=== PATIENT | female | born 1990 | race Hispanic/Latino ===

== ENCOUNTER 2022-02-01 17:06 | Inpatient (IN) | payer OTHER ==
[~2022-02-01] VITALS: Ht 154.9 cm; Wt 57.2 kg
[2022-02-01] MEDS ORDERED: OCTREOTIDE ACETATE 500 MCG in SODIUM CHLORIDE 0.9% 250ML 250 ML IV STA (17:27)
[2022-02-01 17:38] LABS: BASOPHILS % 0.5 % (0.0-1.0); EOSINOPHILS # (AUTO) 0.1 (0.0-0.4); EOSINOPHILS % 1.8 % (0.0-6.0); HEMOGLOBIN 7.3 g/dL (12.0-16.0); LYMPHOCYTES # (AUTO) 0.8 (1.0-3.2); LYMPHOCYTES % 21.8 % (18.0-39.1); MEAN CORPUSCULAR HEMOGLOBIN 31.6 pg (28-32); MEAN CORPUSCULAR HGB CONC 31.7 g/dL (31-35); MEAN CORPUSCULAR VOLUME 99.6 fL (81-99); MONOCYTES # (AUTO) 0.5 (0.2-0.8); MONOCYTES % 13.1 % (4.4-11.3); NEUTROPHILS # (AUTO) 2.4 (2.1-6.9); NEUTROPHILS % 62.5 % (38.7-80.0); PLATELET COUNT 88 x10e3/uL (140-360); RED BLOOD COUNT 2.31 x10e6/uL (3.6-5.1); RED CELL DISTRIBUTION WIDTH 21.6 % (11.7-14.4)
[2022-02-01 17:45] LABS: INR 1.62
[2022-02-01 17:48] LABS: PROTHROMBIN TIME 20.6 seconds (11.9-14.5)
[2022-02-01 17:54] LABS: ALBUMIN 2.8 g/dL (3.5-5.0); ALBUMIN/GLOBULIN RATIO 0.5 (0.8-2.0); ANION GAP 13.1 mmol/L (8-16); CALCIUM 9.8 mg/dL (8.4-10.2); CREATININE, SERUM 0.8 mg/dL (0.57-1.11); POTASSIUM 4.1 mmol/L (3.5-5.1)
[2022-02-01 18:38] LABS: LIPASE 5 U/L (8-78)
[2022-02-01] MEDS ORDERED: Morphine 4mg INJECTION 4 MG/ML INJ IV PRN (18:45)
[2022-02-01] MEDS ORDERED: ONDANSETRON HCL INJ 2MG/ML 2ML 2 MG/ML VIAL IV PRN (18:45)
[2022-02-01 18:57] LABS: CLARITY,URINE CLOUDY (CLEAR); COLOR,URINE YELLOW (YELLOW)
[2022-02-01 18:58] LABS: KETONES,URINE NEGATIVE (NEGATIVE); LEUKOCYTE ESTERASE ,URINE NEGATIVE (NEGATIVE); NITRITE,URINE NEGATIVE (NEGATIVE); PROTEIN,URINE DIPSTICK 1+ (NEGATIVE)
[2022-02-01 19:13] LABS: BACTERIA,URINE MANY /HPF; EPITHELIAL CELLS,URINE MODERATE /LPF
[2022-02-01] MEDS ORDERED: SODIUM CHLORIDE 0.9% 250ML 250 ML IV ONE (19:15)
[2022-02-01 19:21] LABS: CREATINE KINASE MB 0.9 ng/mL (0-5.0)
[2022-02-01 21:22] LABS: AMPHETAMINES SCREEN,URINE POSITIVE (NEGATIVE); BENZODIAZEPINES SCREEN,URINE POSITIVE (NEGATIVE); PHENCYCLIDINE SCREEN,URINE NEGATIVE (NEGATIVE)
[2022-02-01 22:44] LABS: BILIRUBIN,DIRECT 8.4 mg/dL (0.0-0.5)
[2022-02-01] MEDS: SODIUM CHLORIDE 0.9% 1000ML 1,000 ML IV SCH (23:00)
[2022-02-01] MEDS: OCTREOTIDE ACETATE 500 MCG in SODIUM CHLORIDE 0.9% 250ML 250 ML IV SCH (23:03)
[2022-02-02] VITALS (8 sets, daily range): BP systolic 104–147; BP diastolic 69–95
[2022-02-02] MEDS: SODIUM CHLORIDE 0.9% 1000ML 1,000 ML IV SCH (02:45)
[2022-02-02] MEDS: OCTREOTIDE ACETATE 500 MCG in SODIUM CHLORIDE 0.9% 250ML 250 ML IV SCH ×3 (03:45→19:00)
[2022-02-02] MEDS ORDERED: METOPROLOL TARTRATE 25 MG TAB PO SCH (09:00)
[2022-02-02] MEDS ORDERED: CARVEDILOL 3.125 MG TAB PO SCH (09:00)
[2022-02-02] MEDS ORDERED: LEVALBUTEROL HCL SOLN NEBU 0.63 MG/3 ML NEB INH PRN (09:30)
[2022-02-02] MEDS ORDERED: LEVALBUTEROL HCL SOLN NEBU 0.63 MG/3 ML NEB ONE (09:33)
[2022-02-02] MEDS ORDERED: IPRATROPIUM BROMIDE 0.02% 2.5 ML NEB ONE (09:33)
[2022-02-02 11:33] LABS: ALBUMIN 2.3 g/dL (3.5-5.0); ALBUMIN/GLOBULIN RATIO 0.5 (0.8-2.0); ANION GAP 10.4 mmol/L (8-16); CALCIUM 8.6 mg/dL (8.4-10.2); CREATININE, SERUM 0.81 mg/dL (0.57-1.11); POTASSIUM 4.4 mmol/L (3.5-5.1)
[2022-02-02 11:40] LABS: CREATINE KINASE MB 1.5 ng/mL (0-5.0)
[2022-02-02 12:07] LABS: BASOPHILS % 0.4 % (0.0-1.0); EOSINOPHILS # (AUTO) 0.1 (0.0-0.4); EOSINOPHILS % 1.6 % (0.0-6.0); HEMATOCRIT 24.4 % (34.2-44.1); HEMOGLOBIN 7.4 g/dL (12.0-16.0); LYMPHOCYTES # (AUTO) 0.7 (1.0-3.2); LYMPHOCYTES % 16.2 % (18.0-39.1); MEAN CORPUSCULAR HEMOGLOBIN 31.8 pg (28-32); MEAN CORPUSCULAR HGB CONC 30.3 g/dL (31-35); MEAN CORPUSCULAR VOLUME 104.7 fL (81-99); MONOCYTES # (AUTO) 0.7 (0.2-0.8); MONOCYTES % 14.8 % (4.4-11.3); NEUTROPHILS % 66.8 % (38.7-80.0); PLATELET COUNT 87 x10e3/uL (140-360); RED BLOOD COUNT 2.33 x10e6/uL (3.6-5.1); RED CELL DISTRIBUTION WIDTH 21.4 % (11.7-14.4)
[2022-02-02] MEDS: DEXTROSE 5%/0.45% SOD CHL 1,000 ML IV SCH (15:26)
[2022-02-02] MEDS: LACTULOSE SYRUP 20 GM/30 ML UDC PO SCH ×3 (15:28→21:28)
[2022-02-02] MEDS: PROPRANOLOL HCL 40 MG TAB PO SCH (17:55)
[2022-02-02] MEDS: RIFAXIMIN 550 MG TABLET PO SCH (17:55)
[2022-02-02] MEDS ORDERED: MAGNESIUM SULFATE 2GM/50ML 50 ML IV ONE ×2 (18:30→20:00)
[2022-02-02 20:00] LABS: CREATINE KINASE MB 1.7 ng/mL (0-5.0)
[2022-02-03] VITALS (10 sets, daily range): BP systolic 93–133; BP diastolic 57–81
[2022-02-03] MEDS ORDERED: SODIUM CHLORIDE 0.9% 250ML 250 ML ONE ×3 (00:04→23:44)
[2022-02-03 01:27] LABS: IRON 72 ug/dL (50-170); TRANSFERRIN < 70 mg/dL (180-382)
[2022-02-03] MEDS: DEXTROSE 5%/0.45% SOD CHL 1,000 ML IV SCH ×2 (04:35→17:45)
[2022-02-03 05:44] LABS: TOTAL IRON BINDING CAPACITY 55 ug/dL (261-478)
[2022-02-03 05:46] LABS: % IRON SATURATION 136 % (15-50)
[2022-02-03] MEDS: PROPRANOLOL HCL 40 MG TAB PO SCH ×2 (09:59→16:57)
[2022-02-03] MEDS: RIFAXIMIN 550 MG TABLET PO SCH ×2 (10:00→16:57)
[2022-02-03] MEDS: LACTULOSE SYRUP 20 GM/30 ML UDC PO SCH ×4 (10:00→21:00)
[2022-02-03] MEDS ORDERED: DEXTROSE 50% SYRINGE 50 ML IV PRN (10:30)
[2022-02-03 11:07] LABS: ALBUMIN/GLOBULIN RATIO 0.5 (0.8-2.0); CALCIUM 8.1 mg/dL (8.4-10.2); CREATININE, SERUM 0.94 mg/dL (0.57-1.11)
[2022-02-03] MEDS: INSULIN LISPRO 100 UNIT/1 ML 3ML VIAL SQ SCH ×3 (12:58→21:00)
[2022-02-03] MEDS: MULTIVITAMINS- 12 INJECTION 10 ML, FOLIC ACID MDV 1 MG, THIAMINE HCL INJ 100 MG in SODI... IV SCH (13:09)
[2022-02-03 14:14] LABS: BASOPHILS % 0.4 % (0.0-1.0); EOSINOPHILS # (AUTO) 0.1 (0.0-0.4); EOSINOPHILS % 2.6 % (0.0-6.0); HEMOGLOBIN 6.4 g/dL (12.0-16.0); LYMPHOCYTES # (AUTO) 0.9 (1.0-3.2); MEAN CORPUSCULAR HEMOGLOBIN 31.8 pg (28-32); MEAN CORPUSCULAR HGB CONC 31.4 g/dL (31-35); MEAN CORPUSCULAR VOLUME 101.5 fL (81-99); MONOCYTES # (AUTO) 0.6 (0.2-0.8); MONOCYTES % 12.9 % (4.4-11.3); NEUTROPHILS % 63.9 % (38.7-80.0); PLATELET COUNT 62 x10e3/uL (140-360); RED BLOOD COUNT 2.01 x10e6/uL (3.6-5.1); RED CELL DISTRIBUTION WIDTH 20.1 % (11.7-14.4)
[2022-02-03 14:26] LABS: HEMATOCRIT 20.4 % (34.2-44.1)
[2022-02-03] MEDS ORDERED: FUROSEMIDE INJ 10 MG/ML 4 ML VIAL IV ONE ×3 (14:45→23:40)
[2022-02-04] VITALS (7 sets, daily range): BP systolic 115–163; BP diastolic 77–90
[2022-02-04] MEDS: OCTREOTIDE ACETATE 500 MCG in SODIUM CHLORIDE 0.9% 250ML 250 ML IV SCH ×2 (06:05→16:50)
[2022-02-04 08:24] LABS: BASOPHILS % 0.3 % (0.0-1.0); EOSINOPHILS # (AUTO) 0.3 (0.0-0.4); EOSINOPHILS % 4.2 % (0.0-6.0); HEMATOCRIT 29.9 % (34.2-44.1); HEMOGLOBIN 10.1 g/dL (12.0-16.0); LYMPHOCYTES # (AUTO) 1.3 (1.0-3.2); LYMPHOCYTES % 21.2 % (18.0-39.1); MEAN CORPUSCULAR HEMOGLOBIN 32.3 pg (28-32); MEAN CORPUSCULAR HGB CONC 33.8 g/dL (31-35); MEAN CORPUSCULAR VOLUME 95.5 fL (81-99); MONOCYTES # (AUTO) 0.8 (0.2-0.8); MONOCYTES % 13.3 % (4.4-11.3); NEUTROPHILS # (AUTO) 3.8 (2.1-6.9); NEUTROPHILS % 60.7 % (38.7-80.0); PLATELET COUNT 68 x10e3/uL (140-360); RED BLOOD COUNT 3.13 x10e6/uL (3.6-5.1); RED CELL DISTRIBUTION WIDTH 17.6 % (11.7-14.4)
[2022-02-04 08:50] LABS: ALBUMIN 2.3 g/dL (3.5-5.0); ALBUMIN/GLOBULIN RATIO 0.4 (0.8-2.0); ANION GAP 14.7 mmol/L (8-16); CALCIUM 8.5 mg/dL (8.4-10.2); CREATININE, SERUM 0.93 mg/dL (0.57-1.11); POTASSIUM 3.7 mmol/L (3.5-5.1)
[2022-02-04] MEDS: INSULIN LISPRO 100 UNIT/1 ML 3ML VIAL SQ SCH ×4 (09:25→21:00)
[2022-02-04] MEDS: RIFAXIMIN 550 MG TABLET PO SCH ×2 (09:36→16:51)
[2022-02-04] MEDS: PROPRANOLOL HCL 40 MG TAB PO SCH ×2 (09:37→16:51)
[2022-02-04] MEDS: LACTULOSE SYRUP 20 GM/30 ML UDC PO SCH ×4 (09:37→21:00)
[2022-02-04] MEDS: MULTIVITAMINS- 12 INJECTION 10 ML, FOLIC ACID MDV 1 MG, THIAMINE HCL INJ 100 MG in SODI... IV SCH ×2 (11:00→21:35)
[2022-02-04] MEDS: DEXTROSE 5%/0.45% SOD CHL 1,000 ML IV SCH (13:45)
[2022-02-05] VITALS (8 sets, daily range): BP systolic 117–160; BP diastolic 69–89
[2022-02-05] MEDS: OCTREOTIDE ACETATE 500 MCG in SODIUM CHLORIDE 0.9% 250ML 250 ML IV SCH ×3 (01:07→22:10)
[2022-02-05 06:20] LABS: BASOPHILS % 0.4 % (0.0-1.0); EOSINOPHILS # (AUTO) 0.2 (0.0-0.4); EOSINOPHILS % 4.3 % (0.0-6.0); HEMATOCRIT 26.3 % (34.2-44.1); LYMPHOCYTES # (AUTO) 1.3 (1.0-3.2); LYMPHOCYTES % 24.1 % (18.0-39.1); MEAN CORPUSCULAR HEMOGLOBIN 31.9 pg (28-32); MEAN CORPUSCULAR HGB CONC 34.2 g/dL (31-35); MEAN CORPUSCULAR VOLUME 93.3 fL (81-99); MONOCYTES # (AUTO) 0.6 (0.2-0.8); MONOCYTES % 11.1 % (4.4-11.3); NEUTROPHILS # (AUTO) 3.2 (2.1-6.9); NEUTROPHILS % 59.7 % (38.7-80.0); PLATELET COUNT 61 x10e3/uL (140-360); RED BLOOD COUNT 2.82 x10e6/uL (3.6-5.1)
[2022-02-05 06:28] LABS: INR 2.22; PROTHROMBIN TIME 26.3 seconds (11.9-14.5)
[2022-02-05 06:29] LABS: PARTIAL THROMBOPLASTIN TIME 49.2 seconds (23.8-35.5)
[2022-02-05 06:41] LABS: ALBUMIN/GLOBULIN RATIO 0.5 (0.8-2.0); ANION GAP 8.7 mmol/L (8-16); CALCIUM 7.9 mg/dL (8.4-10.2); CREATININE, SERUM 0.83 mg/dL (0.57-1.11); POTASSIUM 3.7 mmol/L (3.5-5.1)
[2022-02-05] MEDS: INSULIN LISPRO 100 UNIT/1 ML 3ML VIAL SQ SCH ×4 (07:30→20:30)
[2022-02-05] MEDS: RIFAXIMIN 550 MG TABLET PO SCH ×2 (08:57→16:59)
[2022-02-05] MEDS: PROPRANOLOL HCL 40 MG TAB PO SCH ×2 (08:58→16:59)
[2022-02-05] MEDS: LACTULOSE SYRUP 20 GM/30 ML UDC PO SCH ×4 (09:00→22:10)
[2022-02-05] MEDS: DEXTROSE 5%/0.45% SOD CHL 1,000 ML IV SCH (09:45)
[2022-02-05] MEDS: MULTIVITAMINS- 12 INJECTION 10 ML, FOLIC ACID MDV 1 MG, THIAMINE HCL INJ 100 MG in SODI... IV SCH (11:10)
[2022-02-05] MEDS ORDERED: OCTREOTIDE ACETATE 500 MCG in SODIUM CHLORIDE 0.9% 250ML 250 ML IV SCH (19:00)
[2022-02-06] VITALS (8 sets, daily range): BP systolic 114–139; BP diastolic 69–82
[2022-02-06] MEDS: DEXTROSE 5%/0.45% SOD CHL 1,000 ML IV SCH (05:45)
[2022-02-06] MEDS ORDERED: THIAMINE HCL INJ 100 MG/ML 2ML VIAL ONE (08:54)
[2022-02-06] MEDS ORDERED: SODIUM CHLORIDE 0.9% 1000ML 1,000 ML ONE (08:54)
[2022-02-06] MEDS: OCTREOTIDE ACETATE 500 MCG in SODIUM CHLORIDE 0.9% 250ML 250 ML IV SCH ×2 (10:08→21:35)
[2022-02-06] MEDS: LACTULOSE SYRUP 20 GM/30 ML UDC PO SCH ×4 (10:11→21:36)
[2022-02-06] MEDS: PROPRANOLOL HCL 40 MG TAB PO SCH (10:12)
[2022-02-06] MEDS: MULTIVITAMINS- 12 INJECTION 10 ML, FOLIC ACID MDV 1 MG, THIAMINE HCL INJ 100 MG in SODI... IV SCH (10:13)
[2022-02-06] MEDS: RIFAXIMIN 550 MG TABLET PO SCH (10:14)
[2022-02-06] MEDS: INSULIN LISPRO 100 UNIT/1 ML 3ML VIAL SQ SCH ×4 (10:27→21:00)
[2022-02-06 11:54] LABS: BASOPHILS % 0.3 % (0.0-1.0); EOSINOPHILS # (AUTO) 0.2 (0.0-0.4); EOSINOPHILS % 4.5 % (0.0-6.0); LYMPHOCYTES # (AUTO) 0.8 (1.0-3.2); LYMPHOCYTES % 21.2 % (18.0-39.1); MEAN CORPUSCULAR HEMOGLOBIN 31.4 pg (28-32); MEAN CORPUSCULAR HGB CONC 31.1 g/dL (31-35); MEAN CORPUSCULAR VOLUME 100.9 fL (81-99); MONOCYTES # (AUTO) 0.3 (0.2-0.8); MONOCYTES % 8.8 % (4.4-11.3); NEUTROPHILS # (AUTO) 2.3 (2.1-6.9); NEUTROPHILS % 64.9 % (38.7-80.0); RED BLOOD COUNT 2.23 x10e6/uL (3.6-5.1); RED CELL DISTRIBUTION WIDTH 17.5 % (11.7-14.4)
[2022-02-06 12:01] LABS: HEMATOCRIT 22.5 % (34.2-44.1); PLATELET COUNT 40 x10e3/uL (140-360)
[2022-02-06] MEDS ORDERED: SODIUM CHLORIDE 0.9% 250ML 250 ML IV ONE (13:00)
[2022-02-06] MEDS ORDERED: LACTULOSE SYRUP 20 GM/30 ML UDC PO ONE (15:00)
[2022-02-06] MEDS ORDERED: SODIUM CHLORIDE 0.9% 250ML 250 ML ONE ×2 (16:56→23:02)
[2022-02-06] MEDS ORDERED: FUROSEMIDE INJ 10 MG/ML 4 ML VIAL IV ONE (17:00)
[2022-02-07] VITALS (7 sets, daily range): BP systolic 106–145; BP diastolic 67–86
[2022-02-07] MEDS: DEXTROSE 5%/0.45% SOD CHL 1,000 ML IV SCH ×2 (01:45→22:17)
[2022-02-07] MEDS ORDERED: FUROSEMIDE INJ 10 MG/ML 4 ML VIAL IV ONE (02:15)
[2022-02-07] MEDS: OCTREOTIDE ACETATE 500 MCG in SODIUM CHLORIDE 0.9% 250ML 250 ML IV SCH ×2 (03:45→12:39)
[2022-02-07] MEDS: MULTIVITAMINS- 12 INJECTION 10 ML, FOLIC ACID MDV 1 MG, THIAMINE HCL INJ 100 MG in SODI... IV SCH (09:00)
[2022-02-07] MEDS: PROPRANOLOL HCL 40 MG TAB PO SCH ×3 (09:00→16:55)
[2022-02-07] MEDS: RIFAXIMIN 550 MG TABLET PO SCH ×3 (09:00→16:56)
[2022-02-07] MEDS ORDERED: SODIUM CHLORIDE 0.9% 250ML 250 ML IV ONE (09:30)
[2022-02-07] MEDS: INSULIN LISPRO 100 UNIT/1 ML 3ML VIAL SQ SCH ×4 (09:31→21:12)
[2022-02-07] MEDS ORDERED: ACETAMINOPHEN 325 MG TAB PO ONE (09:45)
[2022-02-07] MEDS ORDERED: DIPHENHYDRAMINE HCL INJ 50 MG/ML VIAL IV ONE (10:00)
[2022-02-07] MEDS ORDERED: DEXAMETHASONE SOD PHOS 10 MG/1 ML VIAL IV ONE (10:00)
[2022-02-07] MEDS: LACTULOSE SYRUP 20 GM/30 ML UDC PO SCH ×4 (12:03→21:02)
[2022-02-08] VITALS: BP 143/79
[2022-02-08] MEDS: OCTREOTIDE ACETATE 500 MCG in SODIUM CHLORIDE 0.9% 250ML 250 ML IV SCH (00:33)
[2022-02-08 04:00] VITALS: BP 122/80
[2022-02-08 06:22] LABS: ALBUMIN 2.1 g/dL (3.5-5.0); ALBUMIN/GLOBULIN RATIO 0.4 (0.8-2.0); ANION GAP 11.5 mmol/L (8-16); CALCIUM 7.8 mg/dL (8.4-10.2); CREATININE, SERUM 0.97 mg/dL (0.57-1.11); POTASSIUM 4.5 mmol/L (3.5-5.1)
[2022-02-08 06:48] LABS: BASOPHILS % 0.3 % (0.0-1.0); HEMATOCRIT 43.4 % (34.2-44.1); HEMOGLOBIN 14.9 g/dL (12.0-16.0); LYMPHOCYTES # (AUTO) 0.8 (1.0-3.2); LYMPHOCYTES % 11.3 % (18.0-39.1); MEAN CORPUSCULAR HEMOGLOBIN 29.9 pg (28-32); MEAN CORPUSCULAR HGB CONC 34.3 g/dL (31-35); MEAN CORPUSCULAR VOLUME 87.1 fL (81-99); MONOCYTES # (AUTO) 0.1 (0.2-0.8); MONOCYTES % 1.2 % (4.4-11.3); NEUTROPHILS % 86.9 % (38.7-80.0); PLATELET COUNT 58 x10e3/uL (140-360); RED BLOOD COUNT 4.98 x10e6/uL (3.6-5.1)
[2022-02-08 08:00] VITALS: BP 129/88
[2022-02-08 08:28] VITALS: BP 129/88
[2022-02-08] MEDS: PROPRANOLOL HCL 40 MG TAB PO SCH (09:15)
[2022-02-08] MEDS: RIFAXIMIN 550 MG TABLET PO SCH (09:15)
[2022-02-08] MEDS: LACTULOSE SYRUP 20 GM/30 ML UDC PO SCH ×2 (09:16→12:09)
[2022-02-08] MEDS: INSULIN LISPRO 100 UNIT/1 ML 3ML VIAL SQ SCH ×2 (09:19→11:35)
[2022-02-08] MEDS: MULTIVITAMINS- 12 INJECTION 10 ML, FOLIC ACID MDV 1 MG, THIAMINE HCL INJ 100 MG in SODI... IV SCH (09:21)
[2022-02-08 09:29] LABS: BASOPHILS % 0.1 % (0.0-1.0); HEMATOCRIT 46.8 % (34.2-44.1); HEMOGLOBIN 15.1 g/dL (12.0-16.0); LYMPHOCYTES % 10.3 % (18.0-39.1); MEAN CORPUSCULAR HEMOGLOBIN 29.5 pg (28-32); MEAN CORPUSCULAR HGB CONC 32.3 g/dL (31-35); MEAN CORPUSCULAR VOLUME 91.4 fL (81-99); MONOCYTES # (AUTO) 0.1 (0.2-0.8); MONOCYTES % 1.4 % (4.4-11.3); NEUTROPHILS # (AUTO) 8.4 (2.1-6.9); NEUTROPHILS % 87.9 % (38.7-80.0); PLATELET COUNT 58 x10e3/uL (140-360); RED BLOOD COUNT 5.12 x10e6/uL (3.6-5.1); RED CELL DISTRIBUTION WIDTH 20.1 % (11.7-14.4)
[2022-02-08] MEDS ORDERED: PROPRANOLOL HCL40 MG PO (11:11)
[2022-02-08] MEDS ORDERED: PANTOPRAZOLE SO40 MG PO (11:11)
[2022-02-08] MEDS ORDERED: XIFAXAN550 MG PO (11:11)
[2022-02-08] MEDS ORDERED: LACTULOSE20 GM/30 M PO (11:11)
[2022-02-08 11:57] VITALS: BP 133/80
[2022-02-08] MEDS ORDERED: ONDANSETRON HCL 4 MG ORAL DISINTEGRATING TAB PO PRN (12:45)
[2022-02-09] MEDS ORDERED: PANTOPRAZOLE SOD 40 MG TABEC PO SCH (07:30)
== END 2022-02-08 15:15 | disposition home or self-care (01) | DRG 432 ==
LOC: ER 17:26 → ERHOLD 18:36 → MED/SURG2 02-02 00:06
PROVIDERS: ADMIT Internal Medicine; ATTEND Internal Medicine
DX: K70.30 Alcoholic cirrhosis of liver without ascites (principal); K72.00 Acute and subacute hepatic failure without coma; Z16.12 Extended spectrum beta lactamase (ESBL) resistance; I47.1 Supraventricular tachycardia; D68.9 Coagulation defect, unspecified; K76.6 Portal hypertension; D61.818 Other pancytopenia; E72.20 Disorder of urea cycle metabolism, unspecified; K92.2 Gastrointestinal hemorrhage, unspecified; K76.82 Hepatic encephalopathy; N30.90 Cystitis, unspecified without hematuria; B96.1 Klebsiella pneumoniae [K. pneumoniae] as the cause of diseases classified elsewhere; B96.89 Other specified bacterial agents as the cause of diseases classified elsewhere; J45.909 Unspecified asthma, uncomplicated; D69.6 Thrombocytopenia, unspecified; R39.15 Urgency of urination; E11.42 Type 2 diabetes mellitus with diabetic polyneuropathy; Z79.4 Long term (current) use of insulin; F14.10 Cocaine abuse, uncomplicated; F15.10 Other stimulant abuse, uncomplicated; Z20.822 Contact with and (suspected) exposure to COVID-19
CPT/HCPCS: 36415; 36569; 71045; 74178; 76700; 80053; 80307; 80320; 81001; 81025; 81161; 81220; 82105; 82140; 82248; 82270; 82550; 82553; 82607; 82728; 82746; 82948; 83010; 83540; 83605; 83615; 83690; 84155; 84466; 84484; 85025; 85045; 85610; 85730; 86850; 86900; 86920; 87040; 87086; 87186; 93005; 93306; 94799; 96361; 99284; J1100; J1200; J1940; J2185; J2270; J2353; J2543; J3411; J3475; J7030; J7050; J7799; P9016; P9017; P9034